=== PATIENT | female | born 1940 | race Caucasian/White ===

== ENCOUNTER 2019-08-06 09:32 | Day surgery (SDC) | payer MEDICARE, OTHER ==
[2019-08-06] MEDS ORDERED: PROPOFOL 20 ML (10:21)
== END 2019-08-06 14:25 | disposition home or self-care (01) ==
LOC: GIL 09:32
DX: R13.10 Dysphagia, unspecified (principal); K44.9 Diaphragmatic hernia without obstruction or gangrene; K29.50 Unspecified chronic gastritis without bleeding; G30.9 Alzheimer's disease, unspecified; F02.80 Dementia in other diseases classified elsewhere, unspecified severity, without behavioral disturbance, psychotic disturbance, mood disturbance, and anxiety
CPT/HCPCS: 43239; 88305; 88312